=== PATIENT | female | born 1985 | race Caucasian/White ===

== ENCOUNTER 2017-05-07 06:59 | Inpatient (IN) | payer BC ==
[2017-05-07] MEDS ORDERED: Sodium Chloride 0.9% 10 ML Syringe FLUSH PRN (07:12)
[2017-05-07] MEDS ORDERED: Misoprostol 25 MCG (1/4 of 100 MCG) Tab VAG ONE (07:18)
--- NOTE | 2017-05-07 09:26 | PCM.LDHP ---
L&D History of Present Illness - General Date of Service: 05/07/17 Admit Problem/Dx: Patient Status Order with Admit Dx/Problem 05/07/17 06:00 Admission Status [Patient Status] [ADT] Routine 05/07/17 07:12 Patient Status [ADT] Routine Admission Diagnosis/Problem Admission Diagnosis/Problem Source of Information: Patient History Limitations: Reports: No Limitations - History of Present Illness Introduction:: Admitted for induction,post term - Related Data Allergies/Adverse Reactions: Allergies Allergy/AdvReac Type Severity Reaction Status Date / Time No Known Allergies Allergy Verified 01/18/16 22:07 Home Medications: Home Meds Cephalexin [Keflex] 500 mg PO Q6HR #40 cap 01/18/16 [Rx] Past Medical History Genitourinary History: Reports: UTI, Recurrent, Other (See Below) Other Genitourinary History: 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 and cause so many frequent bladder infections" this was done in [facility] Social & Family History - Family History Family Medical History: Noncontributory - Tobacco Use Smoking Status *Q: Current Every Day Smoker Years of Tobacco use: 5 Packs/Tins Daily: 0.3 Second Hand Smoke Exposure: Yes - Caffeine Use Caffeine Use: Reports: Coffee, Soda - Alcohol Use Days Per Week of Alcohol Use: 1 Number of Drinks Per Day: 1 Total Drinks Per Week: 1 - Recreational Drug Use Recreational Drug Use: No H&P Review of Systems - Review of Systems: Review Of Systems: ROS reveals no pertinent complaints other than HPI. L&D Exam - Exam Exam: See Below - Vital Signs Vital Signs: Last Vital Signs Temp 98.2 F 05/07/17 07:12 Pulse 92 05/07/17 07:12 Resp 18 05/07/17 07:12 BP 126/68 05/07/17 07:12 Pulse Ox Weight: 107.501 kg - Kim Score Kim Score Cervix Position: Posterior Kim Score Consistency: Soft - Exam General: Alert, Oriented HEENT: PERRLA, Conjunctiva Clear, EACs Clear, EOMI, Hearing Intact, Mucosa Moist & Warner, Nares Patent, Normal Nasal Septum, Posterior Pharynx Clear, TMs Clear Neck: Supple, Trachea Midline Lungs: Clear to Auscultation, Normal Respiratory Effort Cardiovascular: Regular Rate, Regular Rhythm GI/Abdominal Exam: Normal Bowel Sounds, Soft, Non-Tender, No Organomegaly, No Distention, No Abnormal Bruit, No Mass, Pelvis Stable Rectal Exam: Normal Exam, Normal Rectal Tone Genitourinary: Normal external exam, Normal bimanual exam, Normal speculum exam Back Exam: Normal Inspection, Full Range of Motion Extremities: Normal Inspection, Normal Range of Motion, Non-Tender, No Pedal Edema, Normal Capillary Refill Skin: Warm, Dry, Intact Neurological: Cranial Nerves Intact, Reflexes Equal Bilateral Psychiatric: Alert, Normal Affect, Normal Mood - Problem List (1) Post-dates SNOMED Code(s): 85251514 ICD Code: O48.0 - POST-TERM Status: Acute Current Visit: Yes (2) Elective induction of labor planned SNOMED Code(s): 360983338 ICD Code: [id number] - Status: Acute Current Visit: Yes Problem List Initiated/Reviewed/Updated: Yes Orders Last 24hrs: Active Orders 24 hr Category Date Time Status Patient Status [ADT] Routine ADT 05/07/17 07:12 Active Communication Order [RC] ASDIRECTED Care 05/07/17 07:12 Active Notify Provider Vital Signs [RC] PRN Care 05/07/17 07:14 Active Notify Provider [RC] PRN Care 05/07/17 07:12 Active Vital Signs [RC] PER UNIT ROUTINE Care 05/07/17 07:12 Active Sodium Chloride 0.9% [Saline Flush] Med 05/07/17 07:12 Active 10 ml FLUSH ASDIRECTED PRN Electronic Heart Tones Ext w TOCO [WOMSER] Per Oth 05/07/17 07:12 Ordered Unit Routine Saline Lock Insert [OM.PC] Routine Oth 05/07/17 07:12 Ordered Resuscitation Status Routine Resus Stat 05/07/17 07:12 Ordered Medication Orders Sodium Chloride (Saline Flush) 10 ml FLUSH ASDIRECTED PRN PRN Reason: Keep Vein Open Assessment/Plan Comment:: We will start Cytotec induction and the Pitocin at noon. Risks benefits and reasonable alternatives have been reviewed w/the patient and the family and they 're in agreement
[2017-05-07] MEDS: Lactated Ringers 1,000 ML IV SCH ×3 (11:51→23:59)
[2017-05-07] MEDS ORDERED: Oxytocin/Normal Saline 10 UNIT/1,000 ML BAG IV SCH (12:30)
--- NOTE | 2017-05-07 19:08 | PCM.PNLD ---
Labor Progress Note - VS & Meds Vital Signs: Last Vital Signs Temp 98.1 F 05/07/17 18:00 Pulse 72 05/07/17 18:30 Resp 18 05/07/17 18:30 BP 135/73 05/07/17 18:00 Pulse Ox 95 05/07/17 18:00 Active Medications: Current Medications Lactated Ringer's (Ringers, Lactated) 1,000 mls @ 125 mls/hr IV ASDIRECTED MARIAA Last Admin: 05/07/17 11:51 Dose: 125 mls/hr Oxytocin/Sodium Chloride (Pitocin In Ns 10 Units/1,000 Ml) 10 unit in 1,000 mls @ 12 mls/hr IV TITRATE MARIAA; 2 MUNITS/MIN PRN Reason: Protocol Last Titration: 05/07/17 16:11 Dose: 3 munits/min, 18 mls/hr Sodium Chloride (Saline Flush) 10 ml FLUSH ASDIRECTED PRN PRN Reason: Keep Vein Open Last Admin: 05/07/17 11:48 Dose: 10 ml Discontinued Medications Misoprostol (Cytotec) 25 mcg VAG ONETIME ONE Stop: 05/07/17 07:19 Last Admin: 05/07/17 08:30 Dose: 25 mcg - Uterine Contractions Uterine Monitoring Mode: External [place] Contraction Frequency (min): 1-3 Contraction Duration (sec): 60-80 Contraction Intensity: Mild to Moderate Uterine Resting Tone: Soft - Monitoring Heart Rate (FHR) Variability: Moderate (6-25 bmp) Strip Review: Category I - Vaginal Exam Dilation (cm): 2-3 Effacement (Percent): 70% Station: -1 Cervical Position: Midposition Sterile Vaginal Exam Performed By: Zahra Man Vaginal Exam Comment: Broke the water - Labor Progress (Free Text) Labor Progress: AROM done
[2017-05-07] MEDS ORDERED: fentaNYL 100 MCG/2 ML SDV IV ONE (20:40)
[2017-05-07] MEDS ORDERED: fentaNYL 300 MCG in Ropivacaine 200 ML IV ONE (20:40)
[2017-05-07] MEDS ORDERED: Ropivacaine 200 ML EPIDUR ONE (20:40)
[2017-05-07] MEDS ORDERED: hydrOXYzine HCl 50 MG/ML SDV IM PRN (22:16)
[2017-05-07] MEDS ORDERED: diphenhydrAMINE 50 MG/ML SDV IVPUSH PRN (22:16)
[2017-05-07] MEDS ORDERED: Promethazine 25 MG/ML SDV IV PRN (22:16)
[2017-05-07] MEDS ORDERED: Naloxone 0.4 MG/ML SDV IVPUSH PRN (22:16)
[2017-05-07] MEDS ORDERED: ePHEDrine 50 MG/ML SDV IVPUSH PRN (22:16)
[2017-05-07] MEDS ORDERED: Naloxone 0.4 MG in Sodium Chloride 0.9% 100 ML IV PRN (22:16)
[2017-05-08] MEDS ORDERED: Ondansetron 4 MG/2 ML SDV IVPUSH ONE (05:02)
[2017-05-08] MEDS ORDERED: Ondansetron 4 MG/2 ML SDV ONE (05:03)
[2017-05-08] MEDS ORDERED: Oxytocin 10 Units/1 ML SDV IM ONE (07:14)
[2017-05-08] MEDS: Ibuprofen 600 MG Tab PO PRN ×2 (14:01→21:15)
--- NOTE | 2017-05-08 15:32 | DEL ---
DATE OF DELIVERY: 05/08/2017 DELIVERY SUMMARY: I was called to the bedside at 0400 hours after the patient was complete. Thereafter, the patient started pushing. She was giving effective pushes. At about 0625 hours, she was in an OP position. She had good maternal efforts, and the baby's heart rate was reassuring, category 1. At about 0643 hours, the head was able to come out with a push, pelvic support and pressure, and then proceeded to deliver the anterior shoulder and posterior shoulder, and the whole trunk was delivered. The baby was noticed to be right away limp and nonresponsive. The cord was expeditiously clamped and cut. The baby was taken to the warmer right away. The airway was repositioned, cleared, and positive pressure was initiated at that time. Please see the details of resuscitation in the baby's chart. After this, attention was turned back to the mother, where the perineum was examined and found to have a periurethral tear around 11 o'clock, first-degree. The placenta was gently removed by traction. The uterus was massaged and Pitocin was given 10 units IM. The mother was stable throughout. Estimated blood loss was about 300 mL. /[id number] BOWEN/MIGUEL
[2017-05-09] MEDS: Ibuprofen 600 MG Tab PO PRN ×4 (07:35→22:26)
--- NOTE | 2017-05-09 10:07 | PCM.PNPP ---
- General Info Date of Service: 05/09/17 Subjective Update: delivered full-term,veginally, yesterday has no new complaints today Functional Status: Reports: Pain Controlled, Tolerating Diet - Review of Systems General: Reports: No Symptoms - General Info Date of Service: 05/09/17 - Patient Data Vital Signs - Most Recent: Last Vital Signs Temp 98.2 F 05/08/17 10:02 Pulse 76 05/08/17 11:52 Resp 18 05/09/17 00:00 BP 114/66 05/08/17 11:52 Pulse Ox 94 L 05/08/17 11:52 Weight - Most Recent: 107.501 kg Lab Results - Last 24 Hours: Laboratory Results - last 24 hr 05/09/17 Range/Units 06:25 WBC 9.4 (4.5-12.0) X10-3/uL RBC 3.11 L (3.23-5.20) x10(6)uL Hgb 9.0 L (11.5-15.5) g/dL Hct 27.0 L (30.0-51.3) % MCV 86.6 (80-96) fL MCH 28.9 (27.7-33.6) pg MCHC 33.4 (32.2-35.4) g/dL RDW 13.3 (11.5-15.5) % Plt Count 227 (125-369) X10(3)uL Med Orders - Current: Current Medications Ibuprofen (Motrin) 600 mg PO Q4H PRN PRN Reason: Pain Last Admin: 05/09/17 07:35 Dose: 600 mg Sodium Chloride (Saline Flush) 10 ml FLUSH ASDIRECTED PRN PRN Reason: Keep Vein Open Last Admin: 05/07/17 11:48 Dose: 10 ml Discontinued Medications Diphenhydramine HCl (Benadryl) 25 mg IVPUSH ASDIRECTED PRN PRN Reason: PRURITUS Ephedrine Sulfate (Ephedrine Sulfate) 5 mg IVPUSH ASDIRECTED PRN PRN Reason: HYPOTENSION Hydroxyzine HCl (Vistaril) 0 mg IM Q4H PRN PRN Reason: N/V Lactated Ringer's (Ringers, Lactated) 1,000 mls @ 125 mls/hr IV ASDIRECTED MARIAA Last Admin: 05/07/17 23:59 Dose: 125 mls/hr Oxytocin/Sodium Chloride (Pitocin In Ns 10 Units/1,000 Ml) 10 unit in 1,000 mls @ 12 mls/hr IV TITRATE MARIAA; 2 MUNITS/MIN PRN Reason: Protocol Stop: 05/08/17 08:00 Last Titration: 05/07/17 19:22 Dose: 0 munits/min, 0 mls/hr Naloxone HCl 0.4 mg/ Sodium (Chloride) 101 mls @ 25 mls/hr IV ASDIRECTED PRN PRN Reason: PER ORDER OF ANESTHESIA Misoprostol (Cytotec) 25 mcg VAG ONETIME ONE Stop: 05/07/17 07:19 Last Admin: 05/07/17 08:30 Dose: 25 mcg Naloxone HCl (Narcan) 0.1 mg IVPUSH ASDIRECTED PRN PRN Reason: RESPIRATORY STATUS Ondansetron HCl (Zofran) Confirm Administered Dose 4 mg .ROUTE .STK-MED ONE Stop: 05/08/17 05:04 Last Admin: 05/08/17 08:02 Dose: Not Given Ondansetron HCl (Zofran) 4 mg IVPUSH .STK-MED ONE Stop: 05/08/17 05:03 Oxytocin (Pitocin) 10 unit IM ONETIME ONE Stop: 05/08/17 07:15 Last Admin: 05/08/17 07:15 Dose: 10 unit Promethazine HCl (Phenergan) 6.25 - 12.5 mg IV Q4H PRN PRN Reason: NAUSEA AND VOMITING - Interaction Disposition, : Randolph in Room with Family Support Person: Mother, Sister, Significant Other - Recovery Exam Fundal Tone: Firm Fundal Level: At Umbilicus Fundal Placement: Midline Lochia Amount: Scant Lochia Color: Rubra/Red Perineum Description: Intact, Minimal Bruising/Swelling Episiotomy/Laceration: Approximated Bladder Status: Voiding Urinary Elimination: Voided - Exam General: Alert, Oriented HEENT: Pupils Equal Neck: Supple Lungs: Clear to Auscultation, Normal Respiratory Effort Cardiovascular: Regular Rate, Regular Rhythm GI/Abdominal Exam: Normal Bowel Sounds, Soft, Non-Tender, No Organomegaly, No Distention, No Abnormal Bruit, No Mass, Pelvis Stable Extremities: Normal Inspection, Normal Range of Motion, Non-Tender, No Pedal Edema, Normal Capillary Refill Skin: Warm, Dry, Intact Wound/Incisions: Healing Well Neurological: No New Focal Deficit Psy/Mental Status: Alert, Normal Affect, Normal Mood - Problem List & Annotations (1) Post-dates SNOMED Code(s): 83649823 Code(s): O48.0 - POST-TERM Status: Acute Current Visit: Yes (2) Elective induction of labor planned SNOMED Code(s): 284746601 Code(s): FSY6416 - Status: Acute Current Visit: Yes (3) care and examination SNOMED Code(s): 874087091, 969330562 Code(s): Z39.2 - ENCOUNTER FOR ROUTINE FOLLOW-UP Status: Acute Current Visit: Yes (4) Normal delivery at term SNOMED Code(s): 91153489 Code(s): O80 - ENCOUNTER FOR FULL-TERM UNCOMPLICATED DELIVERY Status: Acute Current Visit: Yes - Problem List Review Problem List Initiated/Reviewed/Updated: Yes - My Orders Last 24 Hours: My Active Orders 05/08/17 10:01 Ibuprofen [Motrin] 600 mg PO Q4H PRN 05/08/17 10:02 Vital Signs [RC] PFP Perineal Care [OM.PC] Per Unit Routine Sitz Bath [OM.PC] Per Unit Routine - Plan Plan:: Routine post orders
[2017-05-10] MEDS: Ibuprofen 600 MG Tab PO PRN (07:54)
--- NOTE | 2017-05-10 08:47 | PCM.PNPP ---
- General Info Date of Service: 05/10/17 Subjective Update: No concerns.Doing well. - Review of Systems HEENT: Reports: No Symptoms Pulmonary: Reports: No Symptoms Cardiovascular: Reports: No Symptoms - General Info Date of Service: 05/10/17 - Patient Data Vital Signs - Most Recent: Last Vital Signs Temp 97.9 F 05/10/17 02:00 Pulse 60 05/10/17 02:00 Resp 18 05/10/17 02:00 BP 124/62 05/10/17 02:00 Pulse Ox 100 05/10/17 02:00 Weight - Most Recent: 107.501 kg Med Orders - Current: Current Medications Ibuprofen (Motrin) 600 mg PO Q4H PRN PRN Reason: Pain Last Admin: 05/10/17 07:54 Dose: 600 mg Sodium Chloride (Saline Flush) 10 ml FLUSH ASDIRECTED PRN PRN Reason: Keep Vein Open Last Admin: 05/07/17 11:48 Dose: 10 ml Discontinued Medications Diphenhydramine HCl (Benadryl) 25 mg IVPUSH ASDIRECTED PRN PRN Reason: PRURITUS Ephedrine Sulfate (Ephedrine Sulfate) 5 mg IVPUSH ASDIRECTED PRN PRN Reason: HYPOTENSION Hydroxyzine HCl (Vistaril) 0 mg IM Q4H PRN PRN Reason: N/V Lactated Ringer's (Ringers, Lactated) 1,000 mls @ 125 mls/hr IV ASDIRECTED MARIAA Last Admin: 05/07/17 23:59 Dose: 125 mls/hr Oxytocin/Sodium Chloride (Pitocin In Ns 10 Units/1,000 Ml) 10 unit in 1,000 mls @ 12 mls/hr IV TITRATE MARIAA; 2 MUNITS/MIN PRN Reason: Protocol Stop: 05/08/17 08:00 Last Titration: 05/07/17 19:22 Dose: 0 munits/min, 0 mls/hr Naloxone HCl 0.4 mg/ Sodium (Chloride) 101 mls @ 25 mls/hr IV ASDIRECTED PRN PRN Reason: PER ORDER OF ANESTHESIA Misoprostol (Cytotec) 25 mcg VAG ONETIME ONE Stop: 05/07/17 07:19 Last Admin: 05/07/17 08:30 Dose: 25 mcg Naloxone HCl (Narcan) 0.1 mg IVPUSH ASDIRECTED PRN PRN Reason: RESPIRATORY STATUS Ondansetron HCl (Zofran) Confirm Administered Dose 4 mg .ROUTE .STK-MED ONE Stop: 05/08/17 05:04 Last Admin: 05/08/17 08:02 Dose: Not Given Ondansetron HCl (Zofran) 4 mg IVPUSH .STK-MED ONE Stop: 05/08/17 05:03 Oxytocin (Pitocin) 10 unit IM ONETIME ONE Stop: 05/08/17 07:15 Last Admin: 05/08/17 07:15 Dose: 10 unit Promethazine HCl (Phenergan) 6.25 - 12.5 mg IV Q4H PRN PRN Reason: NAUSEA AND VOMITING - Interaction Disposition, : in Room with Family Support Person: Mother, Sister, Significant Other - Recovery Exam Fundal Tone: Firm Fundal Level: 2 Fingerbreadths Below Umbilicus Fundal Placement: Midline Lochia Amount: Small Lochia Color: Rubra/Red Perineum Description: Intact, Minimal Bruising/Swelling Episiotomy/Laceration: None Bladder Status: Voiding Urinary Elimination: Voided - Exam General: Alert, Oriented HEENT: Pupils Equal Neck: Supple Lungs: Clear to Auscultation, Normal Respiratory Effort Cardiovascular: Regular Rate, Regular Rhythm GI/Abdominal Exam: Normal Bowel Sounds, Soft, Non-Tender, No Organomegaly, No Distention, No Abnormal Bruit, No Mass, Pelvis Stable Extremities: Normal Inspection, Normal Range of Motion, Non-Tender, No Pedal Edema, Normal Capillary Refill Skin: Warm, Dry, Intact Wound/Incisions: Healing Well Neurological: No New Focal Deficit Psy/Mental Status: Alert, Normal Affect, Normal Mood - Problem List & Annotations (1) Post-dates SNOMED Code(s): 10967299 Code(s): O48.0 - POST-TERM Status: Acute Current Visit: Yes (2) Elective induction of labor planned SNOMED Code(s): 430043174 Code(s): QNN5186 - Status: Acute Current Visit: Yes (3) care and examination SNOMED Code(s): 475264134, 999801005 Code(s): Z39.2 - ENCOUNTER FOR ROUTINE FOLLOW-UP Status: Acute Current Visit: Yes (4) Normal delivery at term SNOMED Code(s): 94597319 Code(s): O80 - ENCOUNTER FOR FULL-TERM UNCOMPLICATED DELIVERY Status: Acute Current Visit: Yes - Problem List Review Problem List Initiated/Reviewed/Updated: Yes - My Orders Last 24 Hours: DC home today.RTO 6 weeks Post - Plan Plan:: Routine post orders
[2017-05-10 11:24] VITALS: BP 119/63
--- NOTE | 2017-05-10 13:36 | DISCH ---
DISCHARGE DATE: 05/10/2017 REASON FOR ADMISSION: Induction of labor. Term . DISCHARGE DIAGNOSES: 1. Full-term delivery . 2. Anemia due to blood loss. CONSULTATIONS: None. PROCEDURES: 1. Induction of labor. 2. AROM. BRIEF HISTORY: This is a 32-year-old primigravida who was admitted at 40 weeks and 1 day for induction of labor. It was done initially by Cytotec and then Pitocin. She delivered after about 24 hours, full-term who needed resuscitation due to meconium aspiration. She was group B negative. The patient did well . She is . Hemoglobin was 9.0 on day #1 . She had no symptoms. She was discharged on the . DISCHARGE MEDICATIONS: 1. vitamins. 2. Motrin p.r.n. FOLLOWUP: Follow up within 6 weeks of delivery. Return to the ED with worsening symptoms. Please note that I spent more than 35 minutes in the discharge of Nicole. /[id number] BOWEN/MIGUEL
== END 2017-05-10 11:05 | disposition home or self-care (01) | DRG 560 ==
LOC: FB.OB 06:59 → UNDOADMOB 06:59 → OBSVTOIN 19:00 → INTOOBSV 19:00 → OBSVTOIN 05-08 06:43 → FB.OB 05-08 06:43 → UNDODISIN 05-10 11:05
PROVIDERS: ADMIT Family Medicine; ATTEND Family Medicine
PROC: 3E0P7VZ Introduction of Hormone into Female Reproductive, Via Natural or Artificial Opening (ICD-10-PCS; 2017-05-07)
PROC: 3E033VJ Introduction of Other Hormone into Peripheral Vein, Percutaneous Approach (ICD-10-PCS; 2017-05-07)
PROC: 10907ZC Drainage of Amniotic Fluid, Therapeutic from Products of Conception, Via Natural or Artificial Opening (ICD-10-PCS; 2017-05-07)
PROC: 00HU33Z Insertion of Infusion Device into Spinal Canal, Percutaneous Approach (ICD-10-PCS; 2017-05-07)
PROC: 10E0XZZ Delivery of Products of Conception, External Approach (ICD-10-PCS; principal; 2017-05-08)
DX: O48.0 Post-term pregnancy (principal); Z3A.40 40 weeks gestation of pregnancy; O99.334 Smoking (tobacco) complicating childbirth; O70.0 First degree perineal laceration during delivery; Z37.0 Single live birth; Z86.14 Personal history of Methicillin resistant Staphylococcus aureus infection; O90.81 Anemia of the puerperium
CPT/HCPCS: 36415; 59409; 85027; A9270-GY; J2405; J2590; J2795; J3010; J7050; J7120

== ENCOUNTER 2019-07-15 17:30 | Emergency (ER) | payer OTHER, BC ==
[2019-07-15] MEDS ORDERED: Ondansetron 4 MG Tab.DIS PO ONE (17:31)
[2019-07-15] MEDS ORDERED: hydrOXYzine HCl 50 MG/ML SDV IM ONE (17:47)
[2019-07-15] MEDS ORDERED: Ketorolac 60 MG/2 ML SDV IM ONE (17:47)
[2019-07-15] MEDS ORDERED: Ondansetron 4 MG/2 ML SDV IVPUSH ONE (18:09)
[2019-07-15] MEDS ORDERED: Sodium Chloride 0.9% 10 ML Syringe FLUSH PRN (18:09)
[2019-07-15] MEDS ORDERED: Sodium Chloride 0.9% 1,000 ML IV SCH (18:15)
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
[2019-07-15] MEDS ORDERED: Sulfamethoxazole/Trimethoprim 800-160 MG Tab PO ONE (19:37)
[2019-07-15 20:43] VITALS: BP 146/87; PULSE 72
== END 2019-07-15 19:36 | disposition home or self-care (01) ==
LOC: FB.ED 17:30
DX: K52.9 Noninfective gastroenteritis and colitis, unspecified (principal)
CPT/HCPCS: 36415; 80053; 81001; 82150; 83690; 85025; 87086; 96361; 96372; 96374; 99284; A9270; J1885; J2405; J3410; J7030

== ENCOUNTER 2019-07-21 10:17 | Emergency (ER) | payer BC, OTHER ==
[2019-07-21] MEDS ORDERED: Sodium Chloride 0.9% 1,000 ML IV ONE (10:47)
[2019-07-21] MEDS ORDERED: Ketorolac 30 MG/ML SDV IVPUSH ONE (10:48)
[2019-07-21] MEDS ORDERED: Ondansetron 4 MG/2 ML SDV IVPUSH ONE (10:48)
--- NOTE | 2019-07-21 10:51 | EDM.PDOC ---
ED HPI GENERAL MEDICAL PROBLEM - General Chief Complaint: Abdominal Pain Stated Complaint: ABD PAIN Time Seen by Provider: 07/21/19 10:33 Source of Information: Reports: Patient History Limitations: Reports: No Limitations - History of Present Illness INITIAL COMMENTS - FREE TEXT/NARRATIVE: seen one week ago with RUQ abd pain , improved with fluids and at the same time was diagnosed with UTI , treated and felt better this am ate at about 8am and at 10am developed sudden onset of RUQ abd pain again , similar to the one she had last week has nausea no vomiting now Onset: Today Onset Date: 07/21/19 Duration: Hour(s): (2) Location: Reports: Abdomen Quality: Reports: Dull Severity: Moderate Worsens with: Reports: Movement Associated Symptoms: Reports: Diaphoresis, Malaise, Nausea/Vomiting - Related Data Allergies Allergy/AdvReac Type Severity Reaction Status Date / Time No Known Allergies Allergy Verified 07/21/19 14:03 Home Meds: Home Meds Cyanocobalamin (Vitamin B-12) [Vitamin B-12] 250 mcg PO DAILY 07/21/19 [History] Vit 28/Iron Fum/Folic [Theranatal Core Nutrition] 1 each PO DAILY 07/20 [History] Past Medical History - Past Health History Medical/Surgical History: Denies Medical/Surgical History Genitourinary History: Reports: UTI, Recurrent, Other (See Below) Other Genitourinary History: 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: G1 here for induction - Infectious Disease History Infectious Disease History: Reports: MRSA Other Infectious Disease History: states she had mrsa 1 year about 1 year ago in her upper arm started as a cyst that was popped and cultured was on an antibiotic for this - Past Surgical History Female Surgical History: Reports: Other (See Below) Other Female Surgeries/Procedures: states at age 9 had 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 so it wouldnot reflux and cause so many frequent bladder infections" this was done in [facility] Social & Family History - Family History Family Medical History: Noncontributory - Caffeine Use Caffeine Use: Reports: Coffee, Soda ED ROS GENERAL - Review of Systems Review Of Systems: See Below Constitutional: Reports: Malaise HEENT: Reports: No Symptoms Respiratory: Reports: No Symptoms Cardiovascular: Reports: No Symptoms Endocrine: Reports: No Symptoms GI/Abdominal: Reports: Abdominal Pain, Anorexia, Decreased Appetite, Distension , Vomiting. Denies: Diarrhea : Reports: No Symptoms Musculoskeletal: Reports: No Symptoms Skin: Reports: No Symptoms Neurological: Reports: No Symptoms Psychiatric: Reports: No Symptoms ED EXAM, GI/ABD - Physical Exam Exam: See Below Exam Limited By: No Limitations General Appearance: Alert, WD/WN Eyes: Bilateral: EOMI Ears: Normal External Exam Nose: Normal Mucosa Throat/Mouth: Normal Oropharynx Head: Atraumatic, Normocephalic Neck: Supple, Non-Tender Respiratory/Chest: No Respiratory Distress, Lungs Clear Cardiovascular: Regular Rate, Rhythm GI/Abdominal Exam: Soft, Tender (in the epigastrium and RUQ), Abnormal Bowel Sounds (hypoactive BS) Extremities: Normal Range of Motion Neurological: Alert, Oriented, CN II-XII Intact Course - Vital Signs Last Recorded V/S: Last Vital Signs Temp 36.8 C 07/21/19 10:17 Pulse 79 07/21/19 10:17 Resp 16 07/21/19 10:17 BP 134/76 07/21/19 10:17 Pulse Ox 98 07/21/19 10:17 - Orders/Labs/Meds Orders: Active Orders 24 hr Category Date Time Status Notify Provider Consults [RC] ASDIRECTED Care 07/21/19 12:30 Active Consult to Physician [CONS] Stat Cons 07/21/19 12:27 Ordered Labs: Laboratory Tests 07/21/19 07/21/19 07/21/19 Range/Units 10:55 10:55 10:55 WBC 5.8 (4.5-12.0) X10-3/uL RBC 4.86 (3.23-5.20) x10(6)uL Hgb 13.4 (11.5-15.5) g/dL Hct 40.5 (30.0-51.3) % MCV 83.4 (80-96) fL MCH 27.6 L (27.7-33.6) pg MCHC 33.1 (32.2-35.4) g/dL RDW 15.5 (11.5-15.5) % Plt Count 248 (125-369) X10(3)uL MPV 8.6 (7.4-10.4) fL Neut % (Auto) 59.7 (46-82) % Lymph % (Auto) 27.6 (13-37) % Douglas % (Auto) 8.0 (4-12) % Eos % (Auto) 4 (1.0-5.0) % Baso % (Auto) 1 (0-2) % Neut # (Auto) 3.5 (1.6-8.3) # Lymph # (Auto) 1.6 (0.6-5.0) # Douglas # (Auto) 0.5 (0.0-1.3) # Eos # (Auto) 0.2 (0.0-0.8) # Baso # (Auto) 0.0 (0.0-0.2) # PT 11.1 (9.0-11.1) sec INR 1.15 (1.00-1.24) Sodium 142 (135-145) mmol/L Potassium 4.1 (3.5-5.3) mmol/L Chloride 105 (100-110) mmol/L Carbon Dioxide 25 (21-32) mmol/L BUN 13 (7-18) mg/dL Creatinine 0.9 (0.55-1.02) mg/dL Est Cr Clr Drug Dosing 83.23 mL/min Estimated GFR (MDRD) > 60 (>60) BUN/Creatinine Ratio 14.4 (9-20) Glucose 105 (80-116) mg/dL Calcium 8.7 (8.6-10.2) mg/dL Total Bilirubin 0.6 (0.1-1.3) mg/dL AST 74 H D (5-25) IU/L ALT 64 H D (12-36) U/L Alkaline Phosphatase 144 H (56-112) IU/L Total Protein 7.3 (6.0-8.0) g/dL Albumin 3.5 (3.5-5.2) g/dL Globulin 3.8 g/dL Albumin/Globulin Ratio 0.9 Meds: Medications Discontinued Medications Generic Name Dose Route Start Last Admin Trade Name Freq PRN Reason Stop Dose Admin Sodium Chloride 1,000 mls @ 999 mls/hr 07/21/19 10:47 07/21/19 11:04 Normal Saline IV 07/21/19 11:47 999 mls/hr .BOLUS ONE Administration Pantoprazole Sodium 80 mg/ 100 mls @ 200 mls/hr 07/21/19 12:26 07/21/19 12:48 Sodium Chloride IV 07/21/19 12:55 200 mls/hr .BOLUS ONE Administration Ketorolac Tromethamine 30 mg 07/21/19 10:48 07/21/19 11:02 Toradol IVPUSH 07/21/19 10:49 30 mg ONETIME ONE Administration Ondansetron HCl 4 mg 07/21/19 10:48 07/21/19 11:03 Zofran IVPUSH 07/21/19 10:49 4 mg ONETIME ONE Administration - Re-Assessments/Exams Free Text/Narrative Re-Assessment/Exam: 07/21/19 12:31 pt comfortable after toradol and Zofran had USS done : confirmed gallstones may need to have HIDA done Surgical consult generated Departure - Departure Time of Disposition: 13:50 Disposition: Home, Self-Care 01 Clinical Impression: Epigastric abdominal pain, Colicky RUQ abdominal pain, Cholelithiasis - Discharge Information *PRESCRIPTION DRUG MONITORING PROGRAM REVIEWED*: Not Applicable *COPY OF PRESCRIPTION DRUG MONITORING REPORT IN PATIENT LEILANI: Not Applicable Instructions: Cholelithiasis, [id number], Cholecystitis, [id number] Referrals: Denis Sandy MD [Primary Care Provider] - Forms: ED Department Discharge Additional Instructions: Arrive at 0745 tomorrow at the ER door for your gall bladder removal. Nothing to eat or drink after midnight. Prescription sent to [facility] per Dr. Thompson for pain. Sepsis Event Note - Focused Exam Vital Signs: Vital Signs Temp Pulse Resp BP Pulse Ox 07/21/19 10:17 36.8 C 79 16 134/76 98 Date Exam was Performed: 07/21/19 Time Exam was Performed: 14:04 - My Orders Last 24 Hours: My Active Orders 07/21/19 12:27 Consult to Physician [CONS] Stat 07/21/19 12:30 Notify Provider Consults [RC] ASDIRECTED - Assessment/Plan Last 24 Hours: My Active Orders 07/21/19 12:27 Consult to Physician [CONS] Stat 07/21/19 12:30 Notify Provider Consults [RC] ASDIRECTED
--- NOTE | 2019-07-21 12:08 | US ---
INDICATION: Right upper quadrant - mid-epigastric pain. RIGHT UPPER QUADRANT/GALLBLADDER ULTRASOUND: Multiple ultrasonic images were obtained utilizing 2D real-time and color flow imaging with M-mode evaluation of the IVC. The IVC was phasic. The pancreas, as visualized, appeared normal with the tail not well seen due to intestinal gas. Gallbladder wall is thickened (4.8 mm) with multiple calculi present; however, the gallbladder was not enlarged - measured 7.1 x 2.9 x 2.9 cm. No definite ultrasonic Benjamin's sign or pericholecystic fluid was identified. There was tenderness while scanning in the area of the epigastrium. The liver had a normal appearance. The right kidney measured 10.8 x 3.7 x 5.4 cm and was unremarkable. The common bile duct appeared normal at 3.8 mm. IMPRESSION: 1. Cholelithiasis with probable chronic cholecystitis, although the possibility of acute cholecystitis cannot be entirely excluded. 2. Nuclear medicine hepatobiliary imaging would be confirmatory, as felt to be clinically necessary. Report was called to Dr. Reno at 11:53 hours. [facility]
[2019-07-21] MEDS ORDERED: Pantoprazole 80 MG in Sodium Chloride 0.9% 100 ML IV ONE (12:26)
[2019-07-21 14:16] VITALS: BP 138/92; PULSE 67
--- NOTE | 2019-07-21 19:27 | ER ---
DATE OF CONSULTATION: 07/21/2019 HISTORY OF PRESENT ILLNESS: This 34-year-old female was seen in consultation from Dr. Reno in the emergency room. The patient has been having episodic severe upper abdominal pain and has been in the emergency room twice in the past week. Last week, it was associated with some nausea and vomiting and thought it was from flu symptoms. Today, she returns and gallbladder ultrasound shows wall thickening and gallstones. Liver function tests are elevated. Bilirubin is normal. WBC is normal. I have reviewed the ultrasound with Dr. Olivares. PAST MEDICAL HISTORY: She is three months and has a 2-year-old and a 3-month-old at home. She had previous surgery as a child with her ureter for reflux and frequent bladder infections. MEDICATIONS: She has finished Bactrim for bladder infection. MEDICAL ALLERGIES: None. SOCIAL HISTORY: The patient is and has two young kids. 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 The patient still smokes half pack per day. She does not use alcohol. PHYSICAL EXAMINATION: GENERAL: Reveals a pleasant, healthy appearing young lady, in no distress. VITAL SIGNS: Vitals are reviewed and within normal limits. She is afebrile. HEENT: Her sclerae are white. Skin is not jaundiced. LUNGS: Clear. Respirations are unlabored. HEART: Regular in rate and rhythm without murmur. ABDOMEN: Soft with mild epigastric tenderness. No masses or hernias are palpable. Lower transverse incision is well healed. ASSESSMENT: Cholecystitis and cholelithiasis. PLAN: The patient will be scheduled for laparoscopic cholecystectomy tomorrow as an outpatient procedure. We have reviewed the procedure as well as risks and complications of bleeding, infection, anesthesia, bile leakage, bile duct injury, and needing to convert to an open procedure. Informed consent was obtained. /[id number] CECI/MIGUEL DIEZ
== END 2019-07-21 14:04 | disposition home or self-care (01) ==
LOC: FB.ED 10:17
DX: K80.10 Calculus of gallbladder with chronic cholecystitis without obstruction (principal); F17.210 Nicotine dependence, cigarettes, uncomplicated
CPT/HCPCS: 76705; 80053; 85025; 85610; 96361; 96365; 96375; 99284-25; C9113; J1885; J2405; J7030; J7050

== ENCOUNTER 2019-07-22 07:48 | Day surgery (SDC) | payer BC ==
[~2019-07-22 07:48] MED LIST: Lactated Ringers 1,000 ML IV SCH; Sodium Chloride 0.9% 10 ML Syringe FLUSH PRN
[2019-07-22] MEDS ORDERED: Dexamethasone 4 MG/ML 5 ML MDV IVPUSH ONE (07:49)
[2019-07-22] MEDS ORDERED: Ondansetron 4 MG/2 ML SDV IVPUSH ONE (07:49)
[2019-07-22] MEDS ORDERED: Neostigmine Methylsulfate 10 MG/10 ML MDV IVPUSH ONE (07:49)
[2019-07-22] MEDS ORDERED: fentaNYL 100 MCG/2 ML SDV IV ONE (07:49)
[2019-07-22] MEDS ORDERED: Glycopyrrolate 0.2 MG/ML 5 ML MDV IV ONE (07:49)
[2019-07-22] MEDS ORDERED: diphenhydrAMINE 50 MG/ML SDV IVPUSH ONE (07:49)
[2019-07-22] MEDS ORDERED: Succinylcholine 200 MG/10 ML MDV IV ONE (07:49)
[2019-07-22] MEDS ORDERED: Rocuronium 50 MG/5 ML Vial IV ONE (07:49)
[2019-07-22] MEDS ORDERED: Propofol 200 MG/20 ML SDV IV ONE (07:49)
[2019-07-22] MEDS ORDERED: Midazolam 1 MG/ML 2 ML SDV IV ONE (07:49)
[2019-07-22] MEDS ORDERED: Lactated Ringers 1,000 ML IV ONE (07:49)
[2019-07-22] MEDS ORDERED: Ketorolac 30 MG/ML SDV IVPUSH ONE (07:49)
--- NOTE | 2019-07-22 09:22 | PCM.HPR ---
H & P Addendum review - H & P Addendum Review Date of Original H & P: 07/21/19 Date Reviewed: 07/22/19 Time Reviewed: 09:05 Patient was Examined: No Changes
--- NOTE | 2019-07-22 11:05 | PCM.OPNOTE ---
- General Post-Op/Procedure Note Date of Surgery/Procedure: 07/22/19 Operative Procedure(s): Lap dulce maria Findings: Acute Cholecystitis and Cholelithiasis with Adhesions Pre Op Diagnosis: Above Post-Op Diagnosis: Same Anesthesia Technique: General ET Tube Primary Surgeon: Chandler Thompson Anesthesia Provider: Faye Juarez Pathology: GB EBL in mLs: 10 Complications: None Condition: Good
[2019-07-22] MEDS ORDERED: Acetaminophen/HYDROcodone 325-5 MG Tab PO PRN (11:06)
[2019-07-22] MEDS ORDERED: Morphine 2 MG/ML SYRINGE IVPUSH PRN ×2 (11:06→11:18)
--- NOTE | 2019-07-22 12:10 | OR ---
DATE OF OPERATION: 07/22/2019 SURGEON: Chandler Thompson MD PREOPERATIVE DIAGNOSIS: Acute cholecystitis and cholelithiasis. POSTOPERATIVE DIAGNOSIS: Acute cholecystitis and cholelithiasis with adhesions. PROCEDURE: Laparoscopic cholecystectomy with adhesiolysis. ANESTHESIA: General. PROCEDURE IN DETAIL: The patient was brought to the operating room, where general endotracheal anesthesia was administered. Time-out was performed. The abdomen was prepped with ChloraPrep and draped sterilely. An infraumbilical incision was made and extended into the peritoneal cavity without difficulty. The Sally cannulator was introduced and pneumoperitoneum obtained. The patient was placed in reverse Trendelenburg position and rotated to the left. The gallbladder was hard and tense and was difficult to grasp. The entire undersurface was densely covered with omental adhesions. Approximately 15 minutes were spent taking down the adhesions with blunt dissection and electrocautery to expose the gallbladder. This was then grasped and retracted cephalad. A fairly long tedious dissection was undertaken to separate the cystic duct and cystic artery and an enlarged cystic duct node was also present. The gallbladder had a tight band across its lower third making it somewhat difficult to identify landmarks. Once this was released, I could work around posteriorly to free the back right at the gallbladder and neck from the liver. I was then able to continue to separate the long cystic duct from the large cystic artery. Once the anatomy was clear, the cystic artery was doubly clipped proximally and once distally and then transected. There were two branches going towards the cystic duct that were clipped proximally and cauterized distally. The anatomy of the gallbladder was then very clear and the lower third was dissected free from the liver bed and the cystic duct was seen entering toward the common bile duct. The cystic duct was milked back into the gallbladder, then doubly clipped proximally and once distally and then transected. The gallbladder was removed from the bed of the liver with some difficulty because of inflammation and thickening. I was able to get this freed up without any significant bleeding or bile leakage. The gallbladder was brought out part way through the umbilical incision and required opening and removing of thick black sludge to remove with the rest of the way. The right upper quadrant was thoroughly inspected and irrigated and return was clear and hemostasis assured. Ports were removed under direct vision and remained hemostatic. Umbilical fascia was closed with [id number] #0 Vicryl. Skin was closed with 4-0 Vicryl subcuticular sutures. Benzoin and Steri-Strips were placed and Band-Aids applied. The patient tolerated the procedure well. Estimated blood loss was 10 mL. She returned to postanesthesia in stable condition. /[id number] CECI/MIGUEL
[2019-07-23 11:05] VITALS: BP 131/83; PULSE 60
== END 2019-07-22 13:20 | disposition home or self-care (01) ==
LOC: FB.SDS 07:48
PROVIDERS: ATTEND Surgery
DX: K80.00 Calculus of gallbladder with acute cholecystitis without obstruction (principal); K66.0 Peritoneal adhesions (postprocedural) (postinfection); F17.210 Nicotine dependence, cigarettes, uncomplicated
CPT/HCPCS: 81025; 88304; 94150; A9270-GY; J0330; J1100; J1200; J1885; J2250; J2405; J2704; J2710; J3010; J3490; J7120

== ENCOUNTER 2020-08-21 19:40 | Emergency (ER) | payer BC ==
[2020-08-21] MEDS ORDERED: Loperamide 2 MG Cap PO ONE (21:06)
--- NOTE | 2020-08-21 21:12 | EDM.PDOC ---
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 pt had labs wnl here 1m ago and additional labs last week which showed up in [place] yesterday (Sat) and which pt will d/w Anabelle tomorrow pt's exam is benign pt wanted to make sure there was not something serious going on with her bowels Abdomen Pain Score (Numeric/FACES): 2 - Related Data Allergies Allergy/AdvReac Type Severity Reaction Status Date / Time No Known Allergies Allergy Verified 08/21/20 20:06 Home Meds: Home Meds norgestimate-ethinyl estradioL [Tri-Linyah Tablet] 1 tab ASDIRECTED 08/21/20 [History] Past Medical History - Past Health History Medical/Surgical History: Denies Medical/Surgical History HEENT History: Reports: None Cardiovascular History: Reports: None Respiratory History: Reports: None Gastrointestinal History: Reports: Chronic Constipation Genitourinary History: Reports: UTI, Recurrent, Other (See Below) Other Genitourinary History: 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: Musculoskeletal History: Reports: None Neurological History: Reports: Concussion Psychiatric History: Reports: None Endocrine/Metabolic History: Reports: Obesity/BMI 30+ Hematologic History: Reports: None Immunologic History: Reports: None Oncologic (Cancer) History: Reports: None Dermatologic History: Reports: None - Infectious Disease History Infectious Disease History: Reports: Chicken Pox, MRSA Other Infectious Disease History: states she had mrsa 1 year about 1 year ago in her upper arm started as a cyst that was popped and cultured was on an antibiotic for this - Past Surgical History Head Surgeries/Procedures: Reports: None GI Surgical History: Reports: Cholecystectomy Female Surgical History: Reports: Other (See Below) Other Female Surgeries/Procedures: states at age 9 had 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 so it wouldnot reflux and cause so many frequent bladder infections" this was done in [facility] Social & Family History - Family History Family Medical History: No Pertinent Family History - Tobacco Use Tobacco Use Status *Q: Current Every Day Tobacco User Years of Tobacco use: 10 Packs/Tins Daily: 0.5 - Caffeine Use Caffeine Use: Reports: Energy Drinks, Soda, Tea Other Caffeine Use: POWDERED WATER MIX - Recreational Drug Use Recreational Drug Use: No ED ROS GENERAL - Review of Systems Review Of Systems: See Below Constitutional: Reports: No Symptoms HEENT: Reports: No Symptoms Respiratory: Reports: No Symptoms Cardiovascular: Reports: No Symptoms Endocrine: Reports: No Symptoms GI/Abdominal: Reports: Constipation, Diarrhea. Denies: Abdominal Pain : Reports: No Symptoms Musculoskeletal: Reports: No Symptoms Skin: Reports: No Symptoms Neurological: Reports: No Symptoms Psychiatric: Reports: No Symptoms Hematologic/Lymphatic: Reports: No Symptoms Immunologic: Reports: No Symptoms ED EXAM, GI/ABD - Physical Exam Exam: See Below Exam Limited By: No Limitations General Appearance: Alert, WD/WN, No Apparent Distress Ears: Hearing Grossly Normal Nose: Normal Inspection, Normal Mucosa, No Blood Throat/Mouth: Normal Inspection, Normal Voice, No Airway Compromise Head: Atraumatic, Normocephalic Neck: Normal Inspection, Supple, Non-Tender, Full Range of Motion. No: Lymphadenopathy (R), Lymphadenopathy (L) Respiratory/Chest: No Respiratory Distress Cardiovascular: Regular Rate, Rhythm GI/Abdominal Exam: Soft, Non-Tender, No Distention, Other (very soft, good BS x 4, no mass, no localized tender) Back Exam: Normal Inspection, Full Range of Motion Extremities: Normal Inspection, Non-Tender, No Pedal Edema Neurological: Alert, Oriented, CN II-XII Intact, Normal Cognition, No Motor/Sensory Deficits Psychiatric: Normal Affect, Normal Mood Skin Exam: Warm, Dry, Intact, Normal Color, No Rash Lymphatic: No Adenopathy Course - Vital Signs Last Recorded V/S: Last Vital Signs Temp 37.0 C 08/21/20 19:40 Pulse 104 H 08/21/20 19:40 Resp 18 08/21/20 19:40 BP 129/84 05/09/21 19:40 Pulse Ox 98 08/21/20 19:40 - Re-Assessments/Exams Free Text/Narrative Re-Assessment/Exam: 08/21/20 21:13 PE neg labs and imaging will not benefit pt satisfied with instructions Departure - Departure Time of Disposition: 21:07 Disposition: Home, Self-Care 01 Condition: Good Clinical Impression: Frequent loose stools - Discharge Information *PRESCRIPTION DRUG MONITORING PROGRAM REVIEWED*: Not Applicable *COPY OF PRESCRIPTION DRUG MONITORING REPORT IN PATIENT LEILANI: Not Applicable Instructions: Diarrhea, Adult, Constipation, Adult Additional Instructions: You were given loperamide 4 mg as a one time dose today. Miralax is a common medication to help regulate the bowels. In cases where the stools become too loose, Miralax is often given 2 or 3 times a week rather than every day. If you go 48 hours without a bowel movement, one option is to take Milk of Magnesium 30 ml (2 tablespoons) every 12 hours for 2-3 doses until you have a bowel movement. Sepsis Event Note (ED) - Evaluation Sepsis Screening Result: No Definite Risk - Focused Exam Vital Signs: Vital Signs Temp Pulse Resp BP Pulse Ox 08/21/20 19:40 37.0 C 104 H 18 129/84 98
[2020-08-22 00:30] VITALS: BP 133/77; PULSE 90
== END 2020-08-21 21:33 | disposition home or self-care (01) ==
LOC: FB.ED 19:40
DX: R19.7 Diarrhea, unspecified (principal); E66.9 Obesity, unspecified; Z68.33 Body mass index [BMI] 33.0-33.9, adult; Z72.0 Tobacco use
CPT/HCPCS: 99283; A9270